=== PATIENT | male | born 1950 | race Two or more races ===

== ENCOUNTER 2024-03-12 08:41 | Inpatient (IN) | payer BC, OTHER ==
[2024-03-12] VITALS (11 sets, daily range): BP systolic 118; BP diastolic 71; PULSE 93–152; RESP 18–28; TEMP 98.1; O2SAT 94–100
[~2024-03-12] VITALS: Ht 170.2 cm; Wt 63.5 kg
[2024-03-12 09:51] LABS: Basophils # (auto) 0 10 ^3/uL (0-0.2); Basophils % (auto) 0.4 % (0.0-2.0); Eosinophils # (auto) 0 10 ^3/uL (0-0.8); Eosinophils % (auto) 0.2 % (0.0-7.0); Hematocrit 46.1 % (41.0-53.0); Hemoglobin 14.8 g/dL (13.5-17.5); Lymphocytes # (auto) 0.8 10 ^3/uL (0.4-5.4); Lymphocytes % (auto) 8.8 % (10.0-50.0); Mean Corpuscular Hemoglobin 31.2 pg (28.0-32.0); Mean Corpuscular Hgb Conc. 32.1 g/dL (32.0-36.0); Mean Corpuscular Volume 97.1 fL (80.0-100.0); Monocytes # (auto) 0.8 10 ^3/uL (0-1.3); Monocytes % (auto) 9.2 % (0.0-12.0); Neutrophils # (auto) 7.1 10 ^3/uL (1.6-8.6); Neutrophils % (auto) 81.4 % (37.0-80.0); Nucleated Red Blood Cells % 0.1 %; Red Blood Cells 4.75 10^6/uL (4.5-5.90); Red Cell Distribution Width 15.2 % (11.8-14.3); White Blood Cell 8.7 10^3/uL (4.4-10.8)
[2024-03-12 10:02] LABS: Chloride 105 mmol/L (98-107); Potassium 5.5 mmol/L (3.5-5.1); Sodium 137 mmol/L (136-145)
[2024-03-12 10:03] LABS: Anion Gap 12 (5-15); Calcium 9.4 mg/dL (8.5-10.1); Carbon Dioxide 20 mmol/L (20-30)
[2024-03-12 10:08] LABS: BUN/Creatinine Ratio 12.7 (10.0-20.0); Blood Urea Nitrogen 68 mg/dL (9-23); Glucose 84 mg/dL (74-106)
[2024-03-12] MEDS ORDERED: HEPARIN DRIP/D5W 100UNITS/ML 250 ML IV SCH (10:30)
[2024-03-12] MEDS: FUROSEMIDE 100 MG/10ML VIAL IV ONE (10:37)
[2024-03-12] MEDS: NITROGLYCERIN 0.4MG/HR TOPICAL PATCH TD ONE (11:09)
[2024-03-12 11:19] LABS: INR 1.3 (0.9-1.15); Partial Thromboplastin Time 40.5 SEC (24.5-34.5); Prothrombin Time 13.5 sec (9.3-11.8)
[2024-03-12] MEDS: LORazepam 2MG/ML-1ML VIAL IV ONE (11:45)
[2024-03-12] MEDS ORDERED: MORPHINE SULFATE INJ 2 MG/ml SYRG IV PRN ×2 (12:00→12:15)
[2024-03-12] MEDS: InsuLIN REG 1unit/0.01ml Soln (100units/ml) IV ONE (12:00)
[2024-03-12] MEDS ORDERED: DEXTROSE (50%) 50ML SYRG IV ONE (12:00)
[2024-03-12] MEDS ORDERED: CALCIUM GLUC 1,000mg/50ml-NS 50 ML IV ONE (12:00)
[2024-03-12] MEDS ORDERED: SODIUM BICARB 8.4% 50Meq/50ml SYR INJ IV ONE (12:00)
[2024-03-12] MEDS ORDERED: ALBUTEROL SULF 2.5 MG/0.5ML(0.5%) NEB SOLN NEB ONE (12:00)
[2024-03-12] MEDS ORDERED: InsuLIN REG 1unit/0.01ml Soln (100units/ml) IV ONE (12:00)
[2024-03-12] MEDS ORDERED: ALBUTEROL SULF 2.5 MG/0.5ML(0.5%) NEB SOLN NEB PRN ×2 (12:00→12:15)
[2024-03-12] MEDS ORDERED: ACETAMINOPHEN 325 MG TAB PO PRN (12:00)
[2024-03-12] MEDS ORDERED: SODIUM ZIRCONIUM CYCL 10 GM PAK PO ONE (12:00)
[2024-03-12] MEDS ORDERED: NITROGLYCERIN 0.4 MG SL TAB SL PRN (12:00)
[2024-03-12] MEDS: DEXTROSE (50%) 50ML SYRG IV ONE (12:59)
[2024-03-12] MEDS: ALBUTEROL SULF 2.5 MG/0.5ML(0.5%) NEB SOLN NEB ONE (12:59)
[2024-03-12] MEDS: CALCIUM GLUC 1,000mg/50ml-NS 50 ML IV ONE (12:59)
[2024-03-12] MEDS: SODIUM BICARB 8.4% 50Meq/50ml SYR INJ IV ONE (13:00)
[2024-03-12] MEDS: SODIUM ZIRCONIUM CYCL 10 GM PAK PO ONE (13:17)
[2024-03-12 13:52] LABS: Lactic Acid w/Reflex 2.2 mmol/L (0.4-2.0)
[2024-03-12] MEDS ORDERED: IPRATROPIUM BROM 0.5 MG/2.5ML INH SOL NEB SCH (14:00)
[2024-03-12] MEDS ORDERED: ALBUTEROL SULF 2.5 MG/0.5ML(0.5%) NEB SOLN NEB SCH (14:00)
[2024-03-12] MEDS: AMIODARONE BOLUS KIT 100 ML IV ONE (14:21)
[2024-03-12] MEDS: AMIODARONE 450mg/250ml AE 250 ML IV SCH ×2 (14:47→20:19)
[2024-03-12] MEDS: ALBUTEROL SULF 2.5 MG/0.5ML(0.5%) NEB SOLN NEB SCH (14:48)
[2024-03-12] MEDS: IPRATROPIUM BROM 0.5 MG/2.5ML INH SOL NEB SCH (14:48)
[2024-03-12] MEDS: HEPARIN DRIP/D5W 100UNITS/ML 250 ML IV SCH ×2 (15:07→21:00)
[2024-03-12] MEDS: BUMETANIDE 2.5mg/10ml (0.25 mg/ml) INJ IV ONE (15:38)
[2024-03-12 17:39] LABS: Amphetamine Screen, Urine Pos (NEGATIVE); Barbiturate Scree,Urine Neg (NEGATIVE); Benzodiazephine Screen, Urine Neg (NEGATIVE); Cocaine Screen, Urine Neg (NEGATIVE); Opiate Scree,Urine Neg (NEGATIVE)
[2024-03-12 17:40] LABS: Cannabinoid Screen, Urine Neg (NEGATIVE); Phencyclidine Screen, Urine Neg (NEGATIVE)
[2024-03-12 17:47] LABS: Protein, Urine 24.6 mg/dL (0.0-11.9)
[2024-03-12 17:50] LABS: Creatinine, Urine 18.61 mg/dL (30.0-125.0)
[2024-03-12] MEDS ORDERED: FUROSEMIDE 20 MG/2 ML VIAL IV SCH (18:00)
[2024-03-12] MEDS: FUROSEMIDE 20 MG/2 ML VIAL IV SCH (18:46)
[2024-03-12 21:50] LABS: Urine Bacteria FEW /hpf (None Seen); Urine Blood TRACE /uL (Negative); Urine Clarity Clear (Clear); Urine Color Colorless (Yellow); Urine Protein, UAD Negative (Negative); Urine Specific Gravity 1.007 (1.001-1.035); Urine Urobilinogen Normal (Negative); Urine WBC <1 /hpf (0 - 3)
[2024-03-13] VITALS (31 sets, daily range): BP systolic 82–130; BP diastolic 53–78; PULSE 66–100; RESP 12–55; TEMP 97.3–98.3; O2SAT 89–99
[2024-03-13 03:22] LABS: Basophils # (auto) 0 10 ^3/uL (0-0.2); Basophils % (auto) 0.5 % (0.0-2.0); Eosinophils # (auto) 0 10 ^3/uL (0-0.8); Eosinophils % (auto) 0.4 % (0.0-7.0); Hematocrit 42.8 % (41.0-53.0); Hemoglobin 13.7 g/dL (13.5-17.5); Lymphocytes # (auto) 0.7 10 ^3/uL (0.4-5.4); Lymphocytes % (auto) 7.6 % (10.0-50.0); Mean Corpuscular Hemoglobin 30.7 pg (28.0-32.0); Mean Corpuscular Volume 96.1 fL (80.0-100.0); Monocytes # (auto) 0.7 10 ^3/uL (0-1.3); Monocytes % (auto) 7.7 % (0.0-12.0); Neutrophils # (auto) 7.4 10 ^3/uL (1.6-8.6); Neutrophils % (auto) 83.8 % (37.0-80.0); Nucleated Red Blood Cells % 0.1 %; Red Blood Cells 4.45 10^6/uL (4.5-5.90); Red Cell Distribution Width 15.1 % (11.8-14.3); White Blood Cell 8.8 10^3/uL (4.4-10.8)
[2024-03-13 03:32] LABS: Alanine Aminotransferase 292 U/L (7-40); Albumin 3.2 g/dL (3.2-4.8); Alkaline Phosphatase 152 U/L (46-116); Anion Gap 12 (5-15); Aspartate Aminotransferase 352 U/L (13-40); BUN/Creatinine Ratio 14.7 (10.0-20.0); Bilirubin, Total 0.5 mg/dL (0.2-1.0); Blood Urea Nitrogen 79 mg/dL (9-23); Calcium 8.5 mg/dL (8.5-10.1); Carbon Dioxide 19 mmol/L (20-30); Chloride 103 mmol/L (98-107); Glucose 169 mg/dL (74-106); Potassium 5.4 mmol/L (3.5-5.1); Sodium 134 mmol/L (136-145)
[2024-03-13 07:26] LABS: Magnesium 2.3 mg/dL (1.6-2.6)
[2024-03-13 07:28] LABS: Phosphorus 6.2 mg/dL (2.4-5.1)
[2024-03-13 10:00] LABS: Chloride 101 mmol/L (98-107); Sodium 132 mmol/L (136-145)
[2024-03-13] MEDS ORDERED: ENOXAPARIN SOD 40 MG/0.4 ML SYRINGE SC SCH ×2 (10:00)
[2024-03-13 10:01] LABS: Anion Gap 15 (5-15); Carbon Dioxide 16 mmol/L (20-30)
[2024-03-13 10:02] LABS: Calcium 8.9 mg/dL (8.5-10.1)
[2024-03-13 10:07] LABS: Glucose 97 mg/dL (74-106)
[2024-03-13 10:09] LABS: Blood Urea Nitrogen 57 mg/dL (9-23)
[2024-03-13 10:13] LABS: INR 1.52 (0.9-1.15); Prothrombin Time 15.6 sec (9.3-11.8)
[2024-03-13 10:14] LABS: Potassium 6.1 mmol/L (3.5-5.1)
[2024-03-13] MEDS: SODIUM ZIRCONIUM CYCL 10 GM PAK PO ONE (12:02)
[2024-03-13] MEDS: SODIUM BICARB 8.4% 50Meq/50ml SYR INJ IV ONE ×2 (12:03→17:45)
[2024-03-13] MEDS: InsuLIN REG 1unit/0.01ml Soln (100units/ml) IV ONE ×2 (12:06→18:13)
[2024-03-13] MEDS: DEXTROSE (50%) 50ML SYRG IV ONE ×3 (12:08→18:13)
[2024-03-13] MEDS: LIDOCAINE 2%HCL (LOCAL ANESTH.) INJ 20ML MDV ONE (14:32)
[2024-03-13] MEDS: BUMETANIDE 2.5mg/10ml (0.25 mg/ml) INJ IV SCH (14:54)
[2024-03-13] MEDS: ACCU-CHEK COMFORT CURVE STRIP VI ONE (14:56)
[2024-03-13] MEDS: ACETAMINOPHEN 325 MG TAB PO PRN (15:29)
[2024-03-13] MEDS: fentaNYL CITRATE 100 MCG/2 ML VL ONE (16:25)
[2024-03-13] MEDS: MIDAZOLAM HCL 2MG/2ML 2ml VIAL (1mg/ml) ONE (16:26)
[2024-03-13] MEDS: ALBUTEROL SULF 2.5 MG/0.5ML(0.5%) NEB SOLN NEB ONE (16:46)
[2024-03-13] MEDS: HEPARIN SODIUM (PORCINE) 5000 UNITS/ML 1ML VIAL ONE (17:05)
[2024-03-13] MEDS: ceFAZolin 1GM/50ML 50 ML IV ONE (17:05)
[2024-03-13] MEDS: CALCIUM GLUC 1,000mg/50ml-NS 50 ML IV ONE (17:47)
[2024-03-13] MEDS: SEVELAMER 800 MG TAB PO SCH (18:00)
[2024-03-13] MEDS: DEXTROSE 50% SYRINGE 50 ML IV ONE (19:56)
[2024-03-13] MEDS: HEPARIN DRIP/D5W 100UNITS/ML 250 ML IV SCH (19:56)
[2024-03-13] MEDS: SODIUM ZIRCONIUM CYCL 10 GM PAK PO SCH (20:23)
[2024-03-13] MEDS: DOXYCYCLINE 100 MG TAB/CAP PO SCH (22:00)
[2024-03-13] MEDS: AMIODARONE HCL 200 MG TAB PO SCH (22:00)
[2024-03-13] MEDS: MUPIROCIN 2% OINT 15gm or 22gm FOR MRSA NARES EACHNOSTRI SCH (22:20)
[2024-03-14] VITALS (17 sets, daily range): BP systolic 109–139; BP diastolic 67–81; PULSE 64–130; RESP 14–36; TEMP 98–100.6; O2SAT 90–99
[2024-03-14 00:49] LABS: INR 1.82 (0.9-1.15); Partial Thromboplastin Time 42.8 SEC (24.5-34.5); Prothrombin Time 18.5 sec (9.3-11.8)
[2024-03-14] MEDS: SODIUM ZIRCONIUM CYCL 10 GM PAK PO ONE (01:51)
[2024-03-14] MEDS: guaiFENesin-DM 100/10mg/5ml SYR PO PRN (01:52)
[2024-03-14] MEDS: DEXTROSE (50%) 50ML SYRG IV ONE (03:52)
[2024-03-14] MEDS: NITROGLYCERIN 0.4 MG SL TAB SL PRN (05:07)
[2024-03-14 07:07] LABS: INR 1.84 (0.9-1.15); Partial Thromboplastin Time 44.5 SEC (24.5-34.5); Prothrombin Time 18.6 sec (9.3-11.8)
[2024-03-14 07:17] LABS: Anion Gap 16 (5-15); Carbon Dioxide 21 mmol/L (20-30); Chloride 95 mmol/L (98-107); Sodium 132 mmol/L (136-145)
[2024-03-14 07:19] LABS: Calcium 8.6 mg/dL (8.5-10.1)
[2024-03-14 07:23] LABS: Glucose 57 mg/dL (74-106)
[2024-03-14 07:24] LABS: BUN/Creatinine Ratio 12.7 (10.0-20.0)
[2024-03-14 07:36] LABS: Blood Urea Nitrogen 89 mg/dL (9-23); Potassium 5.8 mmol/L (3.5-5.1)
[2024-03-14] MEDS: cefTRIAXone 1GM/50ML D5W 50 ML IV SCH (09:11)
[2024-03-14] MEDS: METOPROLOL SUCCINATE XL 50 MG TAB PO SCH (10:00)
[2024-03-14] MEDS: B-COMPLEX W/ C & FOLIC ACID(NEPHROVITE TAB) PO SCH (10:00)
[2024-03-14] MEDS ORDERED: SODIUM CHL 0.9% 1000 ML BAG XX ONE (10:15)
[2024-03-14] MEDS: AMIODARONE 450mg/250ml AE 250 ML IV SCH ×2 (13:44→22:16)
[2024-03-15] VITALS (17 sets, daily range): BP systolic 111–124; BP diastolic 56–79; PULSE 64–115; RESP 18–32; TEMP 97.6–98.8; O2SAT 92–100
[2024-03-15 07:46] LABS: Basophils # (auto) 0 10 ^3/uL (0-0.2); Basophils % (auto) 0.2 % (0.0-2.0); Eosinophils # (auto) 0 10 ^3/uL (0-0.8); Hematocrit 36.2 % (41.0-53.0); Hemoglobin 11.6 g/dL (13.5-17.5); Lymphocytes # (auto) 0.5 10 ^3/uL (0.4-5.4); Lymphocytes % (auto) 7.9 % (10.0-50.0); Mean Corpuscular Hemoglobin 30.9 pg (28.0-32.0); Mean Corpuscular Volume 96.6 fL (80.0-100.0); Monocytes # (auto) 0.5 10 ^3/uL (0-1.3); Monocytes % (auto) 7.9 % (0.0-12.0); Nucleated Red Blood Cells % 0.7 %; Red Blood Cells 3.74 10^6/uL (4.5-5.90); Red Cell Distribution Width 15.2 % (11.8-14.3); White Blood Cell 5.9 10^3/uL (4.4-10.8)
[2024-03-15 08:00] LABS: Calcium 8.3 mg/dL (8.5-10.1); Chloride 98 mmol/L (98-107); Potassium 5.4 mmol/L (3.5-5.1); Sodium 133 mmol/L (136-145)
[2024-03-15 08:01] LABS: Anion Gap 11 (5-15); Carbon Dioxide 24 mmol/L (20-30)
[2024-03-15 08:07] LABS: BUN/Creatinine Ratio 14.1 (10.0-20.0); Glucose 116 mg/dL (74-106)
[2024-03-15 08:12] LABS: Blood Urea Nitrogen 75 mg/dL (9-23)
[2024-03-15 09:04] LABS: Platelet Estimate Decreased
[2024-03-15 09:04] LABS: Hepatitis B Surface Antigen Negative (Negative)
[2024-03-15 10:11] LABS: Hepatitis C Antibody Reactive (Negative)
[2024-03-15] MEDS ORDERED: ONDANSETRON HCL 4 MG/2 ML VIAL IV PRN (14:15)
[2024-03-15] MEDS ORDERED: MORPHINE SULFATE INJ 2 MG/ml SYRG IV PRN (14:15)
[2024-03-15] MEDS ORDERED: HYDROcodone-ACET 5/325MG TAB PO PRN (14:15)
[2024-03-15] MEDS: PANTOPRAZOLE 40 MG/10 ML VIAL INJ IV SCH (22:33)
[2024-03-15] MEDS: Ensure Enlive Strawberry 8oz Bottle PO SCH (22:52)
[2024-03-16] VITALS (13 sets, daily range): BP systolic 94–122; BP diastolic 59–69; PULSE 60–98; RESP 18–20; TEMP 97.6–98.9; O2SAT 93–100
[2024-03-16 06:48] LABS: Basophils # (auto) 0 10 ^3/uL (0-0.2); Basophils % (auto) 0.1 % (0.0-2.0); Eosinophils # (auto) 0 10 ^3/uL (0-0.8); Hemoglobin 12.1 g/dL (13.5-17.5); Lymphocytes # (auto) 0.7 10 ^3/uL (0.4-5.4); Lymphocytes % (auto) 4.7 % (10.0-50.0); Mean Corpuscular Hemoglobin 30.8 pg (28.0-32.0); Mean Corpuscular Hgb Conc. 31.8 g/dL (32.0-36.0); Mean Corpuscular Volume 96.9 fL (80.0-100.0); Monocytes # (auto) 0.9 10 ^3/uL (0-1.3); Monocytes % (auto) 6.1 % (0.0-12.0); Neutrophils % (auto) 89.1 % (37.0-80.0); Nucleated Red Blood Cells % 0.3 %; Red Blood Cells 3.93 10^6/uL (4.5-5.90); Red Cell Distribution Width 15.3 % (11.8-14.3); White Blood Cell 14.6 10^3/uL (4.4-10.8)
[2024-03-16 06:55] LABS: Anion Gap 15 (5-15); Carbon Dioxide 22 mmol/L (20-30); Chloride 98 mmol/L (98-107); Potassium 4.7 mmol/L (3.5-5.1); Sodium 135 mmol/L (136-145)
[2024-03-16] MEDS ORDERED: SODIUM CHL 0.9% 1000 ML BAG XX ONE (07:00)
[2024-03-16 07:01] LABS: BUN/Creatinine Ratio 13.9 (10.0-20.0); Glucose 117 mg/dL (74-106)
[2024-03-16 07:15] LABS: Blood Urea Nitrogen 82 mg/dL (9-23)
[2024-03-16] MEDS ORDERED: CLINIMIX PER PHARMACY 0 ML IV SCH (14:45)
[2024-03-16 15:33] LABS: Magnesium 2.2 mg/dL (1.6-2.6)
[2024-03-16 15:35] LABS: Phosphorus 8.1 mg/dL (2.4-5.1)
[2024-03-16] MEDS: AMINO ACID INFUSION IN D5W 1,000 ML IV SCH (21:37)
[2024-03-16] MEDS: InsuLIN REG 1unit/0.01ml Soln (100units/ml) SC SCH (23:41)
[2024-03-16] MEDS: ACCU-CHEK COMFORT CURVE STRIP VI SCH (23:42)
[2024-03-17] VITALS (10 sets, daily range): BP systolic 94–115; BP diastolic 58–68; PULSE 65–74; RESP 16–20; TEMP 97.6–98.3; O2SAT 91–99
[2024-03-17] MEDS ORDERED: DEXTROSE (50%) 50ML SYRG IV SCH
[2024-03-17 06:37] LABS: Basophils # (auto) 0 10 ^3/uL (0-0.2); Basophils % (auto) 0.1 % (0.0-2.0); Eosinophils # (auto) 0 10 ^3/uL (0-0.8); Eosinophils % (auto) 0.1 % (0.0-7.0); Hematocrit 38.3 % (41.0-53.0); Hemoglobin 12.3 g/dL (13.5-17.5); Lymphocytes # (auto) 0.7 10 ^3/uL (0.4-5.4); Lymphocytes % (auto) 6.8 % (10.0-50.0); Mean Corpuscular Hemoglobin 30.9 pg (28.0-32.0); Mean Corpuscular Hgb Conc. 32.2 g/dL (32.0-36.0); Mean Corpuscular Volume 95.9 fL (80.0-100.0); Monocytes # (auto) 0.7 10 ^3/uL (0-1.3); Neutrophils # (auto) 9.1 10 ^3/uL (1.6-8.6); Nucleated Red Blood Cells % 0.2 %; Red Cell Distribution Width 14.9 % (11.8-14.3); White Blood Cell 10.6 10^3/uL (4.4-10.8)
[2024-03-17 06:52] LABS: Alanine Aminotransferase 682 U/L (7-40); Albumin 2.3 g/dL (3.2-4.8); Alkaline Phosphatase 141 U/L (46-116); Anion Gap 9 (5-15); BUN/Creatinine Ratio 14.4 (10.0-20.0); Calcium 7.7 mg/dL (8.5-10.1); Carbon Dioxide 28 mmol/L (20-30); Chloride 100 mmol/L (98-107); Glucose 115 mg/dL (74-106); Magnesium 1.8 mg/dL (1.6-2.6); Potassium 3.3 mmol/L (3.5-5.1); Sodium 137 mmol/L (136-145)
[2024-03-17 06:53] LABS: Phosphorus 4.6 mg/dL (2.4-5.1); Total Protein 5.6 g/dL (5.7-8.2)
[2024-03-17 07:04] LABS: Aspartate Aminotransferase 963 U/L (13-40)
[2024-03-17 07:20] LABS: Blood Urea Nitrogen 63 mg/dL (9-23)
[2024-03-17] MEDS: AMIODARONE HCL 200 MG TAB PO SCH (10:01)
[2024-03-17] MEDS: PHYTONADIONE (VIT K)10 MG/ML 1ML VIAL SUBCUT ONE (11:10)
[2024-03-17] MEDS: POTASSIUM CHL 20MEQ/100ML 100 ML IV ONE (11:15)
[2024-03-17] MEDS: THROAT LOZENGES(CEPASTAT) MT PRN (12:07)
[2024-03-18] VITALS (11 sets, daily range): BP systolic 97–111; BP diastolic 52–67; PULSE 64–112; RESP 18–20; TEMP 97.6–98.6; O2SAT 93–97
[2024-03-18 06:20] LABS: Alanine Aminotransferase 512 U/L (7-40); Albumin 2.3 g/dL (3.2-4.8); Alkaline Phosphatase 134 U/L (46-116); Anion Gap 12 (5-15); Aspartate Aminotransferase 619 U/L (13-40); BUN/Creatinine Ratio 15.4 (10.0-20.0); Blood Urea Nitrogen 67 mg/dL (9-23); Calcium 7.8 mg/dL (8.5-10.1); Carbon Dioxide 24 mmol/L (20-30); Chloride 99 mmol/L (98-107); Glucose 116 mg/dL (74-106); Magnesium 1.7 mg/dL (1.6-2.6); Phosphorus 3.9 mg/dL (2.4-5.1); Potassium 3.5 mmol/L (3.5-5.1); Sodium 135 mmol/L (136-145)
[2024-03-18 06:21] LABS: Bilirubin, Total 0.8 mg/dL (0.2-1.0); Total Protein 5.9 g/dL (5.7-8.2)
[2024-03-18 06:45] LABS: Basophils # (auto) 0 10 ^3/uL (0-0.2); Basophils % (auto) 0.2 % (0.0-2.0); Eosinophils # (auto) 0.1 10 ^3/uL (0-0.8); Eosinophils % (auto) 0.8 % (0.0-7.0); Hematocrit 39.8 % (41.0-53.0); Hemoglobin 12.7 g/dL (13.5-17.5); Lymphocytes # (auto) 0.9 10 ^3/uL (0.4-5.4); Mean Corpuscular Hemoglobin 30.4 pg (28.0-32.0); Mean Corpuscular Hgb Conc. 31.9 g/dL (32.0-36.0); Mean Corpuscular Volume 95.2 fL (80.0-100.0); Monocytes # (auto) 0.9 10 ^3/uL (0-1.3); Monocytes % (auto) 8.7 % (0.0-12.0); Neutrophils # (auto) 8.4 10 ^3/uL (1.6-8.6); Neutrophils % (auto) 81.3 % (37.0-80.0); Nucleated Red Blood Cells % 0.1 %; Red Blood Cells 4.18 10^6/uL (4.5-5.90); Red Cell Distribution Width 15.4 % (11.8-14.3); White Blood Cell 10.3 10^3/uL (4.4-10.8)
[2024-03-18 08:53] LABS: INR 1.29 (0.9-1.15); Partial Thromboplastin Time 35.4 SEC (24.5-34.5); Prothrombin Time 13.4 sec (9.3-11.8)
[2024-03-18] MEDS ORDERED: IPRATROPIUM BROM 0.5 MG/2.5ML INH SOL NEB PRN (09:15)
[2024-03-18] MEDS: PANTOPRAZOLE 40 MG TAB PO SCH (09:19)
[2024-03-18] MEDS: LEVALBUTEROL HCL 1.25 MG/3 ML NEB NEB SCH (11:35)
[2024-03-18] MEDS: POTASSIUM CHL 10 Meq TABLET PO ONE (12:27)
[2024-03-18] MEDS: MAGNESIUM SULFATE 1GM/100ML 100 ML IV ONE (12:27)
[2024-03-18] MEDS: BUMETANIDE 2.5mg/10ml (0.25 mg/ml) INJ IV SCH (18:24)
[2024-03-19] VITALS (17 sets, daily range): BP systolic 90–112; BP diastolic 51–66; PULSE 64–95; RESP 14–25; TEMP 97.6–98.6; O2SAT 91–98
[2024-03-19 06:31] LABS: Basophils # (auto) 0 10 ^3/uL (0-0.2); Basophils % (auto) 0.3 % (0.0-2.0); Eosinophils # (auto) 0.1 10 ^3/uL (0-0.8); Eosinophils % (auto) 0.9 % (0.0-7.0); Hematocrit 37.8 % (41.0-53.0); Hemoglobin 12.1 g/dL (13.5-17.5); Lymphocytes # (auto) 0.7 10 ^3/uL (0.4-5.4); Lymphocytes % (auto) 8.1 % (10.0-50.0); Mean Corpuscular Hemoglobin 30.7 pg (28.0-32.0); Mean Corpuscular Hgb Conc. 32.1 g/dL (32.0-36.0); Mean Corpuscular Volume 95.8 fL (80.0-100.0); Monocytes # (auto) 0.8 10 ^3/uL (0-1.3); Monocytes % (auto) 8.7 % (0.0-12.0); Neutrophils # (auto) 7.2 10 ^3/uL (1.6-8.6); Nucleated Red Blood Cells % 0.1 %; Red Blood Cells 3.95 10^6/uL (4.5-5.90); Red Cell Distribution Width 15.5 % (11.8-14.3); White Blood Cell 8.7 10^3/uL (4.4-10.8)
[2024-03-19 06:51] LABS: Anion Gap 9 (5-15); Carbon Dioxide 29 mmol/L (20-30); Chloride 98 mmol/L (98-107); Potassium 3.2 mmol/L (3.5-5.1); Sodium 136 mmol/L (136-145)
[2024-03-19 06:52] LABS: Calcium 7.9 mg/dL (8.7-10.4)
[2024-03-19 06:57] LABS: BUN/Creatinine Ratio 20.5 (10.0-20.0); Glucose 96 mg/dL (74-106)
[2024-03-19 07:04] LABS: Blood Urea Nitrogen 83 mg/dL (9-23)
[2024-03-19] MEDS ORDERED: SODIUM CHL 0.9% 1000 ML BAG XX ONE (07:45)
[2024-03-19] MEDS ORDERED: ALBUMIN 25% 100 ML IV PRN (07:45)
[2024-03-19] MEDS: LIDOCAINE 2%HCL (LOCAL ANESTH.) INJ 20ML MDV ONE (12:51)
[2024-03-19] MEDS: HEPARIN SODIUM (PORCINE) 5000 UNITS/ML 1ML VIAL ONE (12:59)
[2024-03-19] MEDS: fentaNYL CITRATE 100 MCG/2 ML VL ONE (13:00)
[2024-03-19] MEDS: MIDAZOLAM HCL 2MG/2ML 2ml VIAL (1mg/ml) ONE (13:00)
[2024-03-19] MEDS: VERAPAMIL 2.5MG/ML INJ 2ML VIAL IV ONE (13:00)
[2024-03-20] VITALS (14 sets, daily range): BP systolic 108–123; BP diastolic 58–64; PULSE 68–78; RESP 18–20; TEMP 97.9–98.5; O2SAT 92–100
[2024-03-20] MEDS ORDERED: ALBUMIN 25% 100 ML IV PRN (03:30)
[2024-03-20] MEDS ORDERED: SODIUM CHL 0.9% 1000 ML BAG XX ONE (03:30)
[2024-03-20] MEDS: dilTIAZem 25 MG/5 ML VIAL IV ONE (06:02)
[2024-03-20 06:44] LABS: Basophils # (auto) 0 10 ^3/uL (0-0.2); Basophils % (auto) 0.3 % (0.0-2.0); Eosinophils # (auto) 0.2 10 ^3/uL (0-0.8); Lymphocytes # (auto) 0.7 10 ^3/uL (0.4-5.4); Monocytes # (auto) 0.8 10 ^3/uL (0-1.3)
[2024-03-20 06:48] LABS: Eosinophils % (auto) 2.1 % (0.0-7.0); Hematocrit 36.7 % (41.0-53.0); Lymphocytes % (auto) 8.5 % (10.0-50.0); Mean Corpuscular Hemoglobin 31.3 pg (28.0-32.0); Mean Corpuscular Hgb Conc. 32.8 g/dL (32.0-36.0); Mean Corpuscular Volume 95.4 fL (80.0-100.0); Monocytes % (auto) 8.6 % (0.0-12.0); Neutrophils % (auto) 80.5 % (37.0-80.0); Nucleated Red Blood Cells % 0.1 %; Red Blood Cells 3.84 10^6/uL (4.5-5.90); Red Cell Distribution Width 15.1 % (11.8-14.3); White Blood Cell 8.7 10^3/uL (4.4-10.8)
[2024-03-20 07:00] LABS: Chloride 104 mmol/L (98-107); Potassium 4.2 mmol/L (3.5-5.1); Sodium 140 mmol/L (136-145)
[2024-03-20 07:01] LABS: Anion Gap 5 (5-15); Calcium 8.6 mg/dL (8.7-10.4); Carbon Dioxide 31 mmol/L (20-30)
[2024-03-20 07:07] LABS: BUN/Creatinine Ratio 13.8 (10.0-20.0); Blood Urea Nitrogen 20 mg/dL (9-23); Glucose 97 mg/dL (74-106)
[2024-03-20 16:09] LABS: Base Excess 4.3 mmol/L (-2.0-2.0)
[2024-03-21] VITALS: O2SAT 95
[2024-03-21 00:42] VITALS: BP 115/62; PULSE 76; RESP 19; TEMP 98.4; O2SAT 95
[2024-03-21] MEDS: DIGOXIN (250MCG/ML) 2 ML AMPULE IV ONE (03:52)
[2024-03-21] MEDS ORDERED: DIGOXIN (250MCG/ML) 2 ML AMPULE IV ONE (04:00)
[2024-03-21 04:21] VITALS: BP 96/46; PULSE 67; RESP 18; TEMP 98.1; O2SAT 94
[2024-03-21 05:40] LABS: Basophils # (auto) 0 10 ^3/uL (0-0.2); Eosinophils # (auto) 0.2 10 ^3/uL (0-0.8); Mean Corpuscular Volume 95.7 fL (80.0-100.0); Monocytes # (auto) 1.1 10 ^3/uL (0-1.3)
[2024-03-21 05:42] LABS: Basophils % (auto) 0.3 % (0.0-2.0); Eosinophils % (auto) 2.3 % (0.0-7.0); Hematocrit 39.8 % (41.0-53.0); Hemoglobin 12.7 g/dL (13.5-17.5); Lymphocytes # (auto) 0.7 10 ^3/uL (0.4-5.4); Lymphocytes % (auto) 7.9 % (10.0-50.0); Mean Corpuscular Hemoglobin 30.7 pg (28.0-32.0); Monocytes % (auto) 11.4 % (0.0-12.0); Neutrophils # (auto) 7.4 10 ^3/uL (1.6-8.6); Neutrophils % (auto) 78.1 % (37.0-80.0); Red Blood Cells 4.16 10^6/uL (4.5-5.90); Red Cell Distribution Width 15.4 % (11.8-14.3); White Blood Cell 9.5 10^3/uL (4.4-10.8)
[2024-03-21 05:48] LABS: Chloride 101 mmol/L (98-107); Potassium 3.9 mmol/L (3.5-5.1); Sodium 137 mmol/L (136-145)
[2024-03-21 05:49] LABS: Anion Gap 6 (5-15); Calcium 8.7 mg/dL (8.7-10.4); Carbon Dioxide 30 mmol/L (20-30)
[2024-03-21 05:54] LABS: BUN/Creatinine Ratio 12.5 (10.0-20.0); Glucose 101 mg/dL (74-106)
[2024-03-21 06:08] LABS: Blood Urea Nitrogen 33 mg/dL (9-23)
[2024-03-21 06:13] VITALS: O2SAT 96
[2024-03-21 08:21] VITALS: BP 105/58; PULSE 73; RESP 16; TEMP 98.1; O2SAT 96
== END 2024-03-21 09:30 | disposition left against medical advice (07) | DRG 673 ==
LOC: ER 08:41 → TELE 12:03 → TELE-WESTW 03-13 04:25
PROVIDERS: ADMIT Nurse Practitioner Acute Care; ATTEND Nurse Practitioner Acute Care
PROC: 0JH63XZ Insertion of Tunneled Vascular Access Device into Chest Subcutaneous Tissue and Fascia, Percutaneous Approach (ICD-10-PCS; 2024-03-13)
PROC: 02H633Z Insertion of Infusion Device into Right Atrium, Percutaneous Approach (ICD-10-PCS; 2024-03-13)
PROC: B519ZZA Fluoroscopy of Inferior Vena Cava, Guidance (ICD-10-PCS; 2024-03-13)
PROC: B548ZZA Ultrasonography of Superior Vena Cava, Guidance (ICD-10-PCS; 2024-03-13)
PROC: 5A1D70Z Performance of Urinary Filtration, Intermittent, Less than 6 Hours Per Day (ICD-10-PCS; 2024-03-14)
PROC: 5A1D70Z Performance of Urinary Filtration, Intermittent, Less than 6 Hours Per Day (ICD-10-PCS; 2024-03-16)
PROC: B211YZZ Fluoroscopy of Multiple Coronary Arteries using Other Contrast (ICD-10-PCS; principal; 2024-03-19)
PROC: 4A023N7 Measurement of Cardiac Sampling and Pressure, Left Heart, Percutaneous Approach (ICD-10-PCS; 2024-03-19)
PROC: 5A1D70Z Performance of Urinary Filtration, Intermittent, Less than 6 Hours Per Day (ICD-10-PCS; 2024-03-19)
PROC: 5A1D70Z Performance of Urinary Filtration, Intermittent, Less than 6 Hours Per Day (ICD-10-PCS; 2024-03-20)
DX: N17.0 Acute kidney failure with tubular necrosis (principal); I21.4 Non-ST elevation (NSTEMI) myocardial infarction; I50.21 Acute systolic (congestive) heart failure; J96.01 Acute respiratory failure with hypoxia; J15.9 Unspecified bacterial pneumonia; J15.69 Pneumonia due to other Gram-negative bacteria; I48.92 Unspecified atrial flutter; J44.0 Chronic obstructive pulmonary disease with (acute) lower respiratory infection; B19.10 Unspecified viral hepatitis B without hepatic coma; I13.2 Hypertensive heart and chronic kidney disease with heart failure and with stage 5 chronic kidney disease, or end stage renal disease; N18.5 Chronic kidney disease, stage 5; E87.5 Hyperkalemia; F15.10 Other stimulant abuse, uncomplicated; I48.91 Unspecified atrial fibrillation; E83.39 Other disorders of phosphorus metabolism; Z53.29 Procedure and treatment not carried out because of patient's decision for other reasons; B19.20 Unspecified viral hepatitis C without hepatic coma; I25.10 Atherosclerotic heart disease of native coronary artery without angina pectoris; D69.6 Thrombocytopenia, unspecified; F17.210 Nicotine dependence, cigarettes, uncomplicated; Z86.73 Personal history of transient ischemic attack (TIA), and cerebral infarction without residual deficits; I25.2 Old myocardial infarction; Z79.899 Other long term (current) drug therapy; Z91.199 Patient's noncompliance with other medical treatment and regimen due to unspecified reason
CPT/HCPCS: 36415; 36558; 36600; 71045; 76705; 76775; 76937; 77001; 80048; 80053; 80307; 81001; 82270; 82306; 82570; 82805; 82962; 83605; 83735; 83880; 83930; 83970; 84100; 84132; 84156; 84300; 84484; 85025; 85379; 85610; 85730; 86706; 86803; 87081; 87340; 90935; 93005; 93306; 93458; 94640; 99152; 99291; C1894; C9113; G0378; J1642; J1815; J2250; J3480; P9047